=== PATIENT | female | born 1950 | race Caucasian/White ===

== ENCOUNTER → 2017-08-17 | Outpatient (CLI) | payer BC ==
--- NOTE | 2017-08-22 15:32 | Diagnostic Imaging Report ---
#[id number] - MGSCRBIL #BILATERAL DIGITAL SCREENING MAMMOGRAM WITH CAD: 08/17/2017 CLINICAL: Routine screening. Comparison is made to exams dated: 05/18/2016 mammogram, 04/19/2015 mammogram and 03/16/2014 mammogram - [facility]. Current study contains 4 films. The tissue of both breasts is predominantly fatty. Current study was also evaluated with a Computer Aided Detection (CAD) system. There are benign vascular calcifications and calcifications in both breasts. There also are benign lymph nodes in both breasts. No significant masses, calcifications, or other findings are seen in either breast. There has been no significant interval change. IMPRESSION: BENIGN There is no mammographic evidence of malignancy. A 1 year screening mammogram is recommended. The patient will be notified by letter of the results. James morales/latoya:08/19/2017 08:02:43 Caustic Operator: Shanon PHILLIP)(M), [facility] letter sent: Compared to Prior B9 Mammogram BI-RADS: 2 Benign
== END ==
LOC: MAMMO 13:56
PROVIDERS: ATTEND Obstetrics & Gynecology
DX: Z12.31 Encounter for screening mammogram for malignant neoplasm of breast (principal)
CPT/HCPCS: 77067

== ENCOUNTER → 2018-07-21 | Outpatient (CLI) | payer MEDICARE ==
--- NOTE | 2018-07-21 14:59 | Diagnostic Imaging Report ---
EXAM: Bone mineral density study 07/21/2018 9:39 AM INDICATION: ^POST MENOPAUSAL SYNDROME COMPARISON: Previous DEXA none. Baseline DEXA none FINDINGS: Evaluation of the left hip and lumbar spine was performed. The study is technically adequate. The patient's fracture risk is compared to an age-matched control. The patient denies prior surgery/fracture of the spine, hips or forearm. LEFT HIP * Femoral neck bone mineral density: 0.881 gm/cm2, T-score is 0.3, Z-score is 2.0. * Total bone mineral density: 0.929 gm/cm2, T-score is -0.1, Z-score is 1.3. LUMBAR SPINE * Total bone mineral density: 1.150 gm/cm2, T-score is 0.9, Z-score is 2.9. IMPRESSION: 1. LEFT HIP: Bone mineralization by WHO Classification is normal, the fracture risk is not increased. 2. LUMBAR SPINE: Bone mineralization by WHO Classification is normal, the fracture risk is not increased. <T score: NL = -1 or higher Osteopenia = -1 to -2.5 Osteoporosis = -2.5 or lower Z score: < - 2 concerning for path> Signed by: Dr. Dakotah Bruner M.D. on 07/21/2018 2:55 PM
== END ==
LOC: MAMMO 09:25
PROVIDERS: ATTEND Family Medicine
DX: Z12.31 Encounter for screening mammogram for malignant neoplasm of breast (principal); Z91.89 Other specified personal risk factors, not elsewhere classified; N95.1 Menopausal and female climacteric states
CPT/HCPCS: 77067; 77080

== ENCOUNTER → 2019-08-09 | Outpatient (CLI) | payer MEDICARE | LOC: MAMMO 09:57 | PROVIDERS: ATTEND Family Medicine | DX: Z12.31 Encounter for screening mammogram for malignant neoplasm of breast (principal); M19.90 Unspecified osteoarthritis, unspecified site | CPT/HCPCS: 77067; 77080 ==

== ENCOUNTER → 2021-05-22 | Outpatient (CLI) | payer MEDICARE | LOC: MAMMO 10:45 | PROVIDERS: ATTEND Family Medicine | DX: Z12.31 Encounter for screening mammogram for malignant neoplasm of breast (principal); Z13.820 Encounter for screening for osteoporosis; M19.09 Primary osteoarthritis, other specified site | CPT/HCPCS: 77067; 77080 ==

== ENCOUNTER → 2022-08-25 | Outpatient (CLI) | payer MEDICARE | LOC: MAMMO 10:32 | PROVIDERS: ATTEND Family Medicine | DX: Z12.31 Encounter for screening mammogram for malignant neoplasm of breast (principal) | CPT/HCPCS: 77067 ==